=== PATIENT | female | born 1960 | race Caucasian/White ===

== ENCOUNTER → 2016-09-15 | Outpatient (CLI) | payer MEDICAID | END | disposition home or self-care (01) | LOC: LABWHC1 14:48 | PROVIDERS: ATTEND Nurse Practitioner Family | DX: E03.9 Hypothyroidism, unspecified (principal) | CPT/HCPCS: 36415; 84439; 84443 ==

== ENCOUNTER → 2016-10-12 | Outpatient (CLI) | payer MEDICAID ==
[2016-10-12 09:47] LABS: Basophils # (A) 0.1 k/uL (0-0.2); Basophils % (A) 1 %; CH 28.7; CHCM 33.2; Eosinophils # (A) 0.1 k/uL (0-0.7); Eosinophils % (A) 1 %; HCT 43.4 % (34.0-46.0); HDW 2.69; HGB 14.3 gm/dL (11.4-16.0); Luc # (Auto) 0.15; Luc % (Auto) 2; Lymphocytes # (A) 2.1 k/uL (1.0-4.8); Lymphocytes % (A) 22 %; MCH 28.6 pg (25.0-35.0); MCHC 32.9 g/dL (31.0-37.0); MCV 86.9 fL (80.0-100.0); Mean Platelet Volume 7.7; Monocytes # (A) 0.4 k/uL (0-1.0); Monocytes % (A) 4 %; Neutrophils # (A) 6.9 k/uL (1.3-7.7); Neutrophils % (A) 71 %; RBC 4.99 m/uL (3.80-5.40); RDW 13.3 % (11.5-15.5); WBC 9.7 k/uL (3.8-10.6)
[2016-10-12 11:52] LABS: ALT 29 U/L (9-52); AST 23 U/L (14-36); Alkaline Phosphatase 120 U/L (38-126); Anion Gap 13 mmol/L; Blood Urea Nitrogen 14 mg/dL (7-17); Carbon Dioxide 27 mmol/L (22-30); Chloride 104 mmol/L (98-107); Glucose 106 mg/dL (74-99); Non-African American GFR(MDRD) >60 (>60 ml/min/1.73 sqM); Potassium 4.6 mmol/L (3.5-5.1); Sodium 144 mmol/L (137-145); Total Bilirubin 0.4 mg/dL (0.2-1.3); Total Protein 7.8 g/dL (6.3-8.2)
[2016-10-12 12:17] LABS: Erythrocyte Sedimentation Rate 10 mm/hr (0-20)
--- NOTE | 2016-10-12 15:01 | US ---
EXAMINATION TYPE: US thyroid st tissue head/neck DATE OF EXAM: 10/12/2016 12:25 PM COMPARISON: NONE CLINICAL HISTORY: E07.9 Disorder of Thyroid unspecified. Abnormal labs, pt on thyroid meds x 8 years GLAND SIZE: Right Lobe: 4.2 x 1.2 x 1.5 cm Overall Parenchyma: heterogenous Left Lobe: 4.0 x 1.0 x 1.4 cm Overall Parenchyma: heterogeneous Isthmus Thickness: 0.2 cm NODULES RIGHT: # of nodules measured on right: 0 LEFT: # of nodules measured on left: 2 1. 0.7 X 0.5 x 0.6 cm isoechoic solid nodule at the upper pole with poorly defined margins; This no dule is wider than tall and shows intranodular vascularity. Prior size: No prior 2. 0.5 X 0.5 x 0.4 cm isoechoic solid nodule at the lower pole with poorly defined margins; This nod ule is wider than tall and shows intranodular vascularity. Prior size: No prior ISTHMUS: # of nodules measured in the isthmus: 0 Bilateral neck scanned, no evidence of lymphadenopathy/ Heterogeneous gland bilaterally with small, s ub-centimeter nodules left Thyroid gland is normal in size and heterogeneous in appearance with small nodules in left thyroid lo be marked by technologist. Some benign-appearing lymph nodes in the right neck are marked by technolo gist. IMPRESSION: Thyroid gland is normal in size and heterogeneous in appearance, no concerning greater than 1 cm luis d or cystic nodules are identified
== END | disposition home or self-care (01) ==
LOC: LABWHC1 09:18
PROVIDERS: ATTEND Nurse Practitioner Family
DX: E07.9 Disorder of thyroid, unspecified (principal); M79.1 Myalgia; R53.83 Other fatigue
CPT/HCPCS: 36415; 76536; 80053; 85025; 85652; 86038; 86140

== ENCOUNTER 2017-06-13 07:33 | Emergency (ER) | payer MEDICAID, OTHER ==
[2017-06-13 07:40] VITALS: TEMP 97.4
--- NOTE | 2017-06-13 08:23 | ED ---
General Adult HPI - General Chief complaint: Fall Stated complaint: Fell-[facility] Time Seen by Provider: 06/13/17 07:35 Source: patient, RN notes reviewed Mode of arrival: ambulatory Limitations: no limitations - History of Present Illness Initial comments: This is a 56-year-old female presents emergency department after she had fallen off the edge of her chair at 640 this morning. Patient states her right buttock has a little sharp pain occasionally she does not have any bony tenderness it she knows of. Patient states her hip moves fine and her lower back does not hurt. Patient denies hitting her head or neck. Patient denies any chest or abdominal pain. Patient states she fell because there was a wheel missing off of her chair. - Related Data Home Medications Medication Instructions Recorded Confirmed Losartan Potassium 100 mg PO HS 06/15/15 06/13/17 Levothyroxine Sodium [Synthroid] 75 mcg PO DAILY@0200 06/13/17 06/13/17 Allergies Allergy/AdvReac Type Severity Reaction Status Date / Time No Known Allergies Allergy Verified 06/13/17 08:37 Review of Systems ROS Statement: Those systems with pertinent positive or pertinent negative responses have been documented in the HPI. ROS Other: All systems not noted in ROS Statement are negative. Past Medical History Past Medical History: Hypertension, Thyroid Disorder History of Any Multi-Drug Resistant Organisms: None Reported Past Surgical History: Hysterectomy Past Psychological History: Depression Smoking Status: Former smoker Past Alcohol Use History: None Reported Past Drug Use History: None Reported General Exam - General Exam Comments Initial Comments: GENERAL Patient is well-developed and well-nourished. Patient is in mild distress. EYES Patient's pupils are equal and round. Extraocular motion is intact SKIN Unremarkable NEURO The patient is alert and oriented 3 PYSCH Patient has normal interpersonal interactions. MUSCULOSKELETAL Left buttocks is mildly tender to palpation Limitations: no limitations Course Vital Signs 06/13/17 06/13/17 06/13/17 07:36 07:41 09:26 Temperature 97.4 F L Pulse Rate 97 68 Respiratory 18 19 Rate Blood Pressure 171/100 160/90 146/104 O2 Sat by Pulse 99 100 Oximetry Medical Decision Making - Medical Decision Making Pelvis x-ray shows no acute abnormality. Disposition Clinical Impression: Contusion of buttock Disposition: HOME SELF-CARE Condition: Good Instructions: Contusion in Adults (ED) Referrals: Markus Joiner III, MD [Primary Care Provider] - 1-2 days Time of Disposition: 09:32
--- NOTE | 2017-06-13 09:18 | XR ---
EXAMINATION TYPE: XR pelvis AP view DATE OF EXAM: 06/13/2017 CLINICAL HISTORY: Fall off of a chair today landing on the patient's left hip with subsequent left hi p pain. TECHNIQUE: A single AP view of the pelvis is obtained. COMPARISON: None. FINDINGS: There is no acute fracture/dislocation evident in the pelvis. The hip and sacroiliac join ts appear symmetric and unremarkable. The overlying soft tissue appears unremarkable. Mild acetabula r roof sclerosis and cephalad joint space narrowing relate to mild femoral acetabular arthropathy. IMPRESSION: There is no acute fracture or dislocation in the pelvis.
[2017-06-13 09:27] VITALS: BP 146/104; PULSE 68; RESP 19
== END 2017-06-13 09:50 | disposition home or self-care (01) ==
LOC: EC 07:33
DX: S30.0XXA Contusion of lower back and pelvis, initial encounter (principal); E07.9 Disorder of thyroid, unspecified; I10 Essential (primary) hypertension; Z87.891 Personal history of nicotine dependence; Z79.899 Other long term (current) drug therapy; W05.0XXA Fall from non-moving wheelchair, initial encounter; Y92.69 Other specified industrial and construction area as the place of occurrence of the external cause; Y99.0 Civilian activity done for income or pay
CPT/HCPCS: 72170; 99283

== ENCOUNTER → 2018-02-23 | Outpatient (CLI) | payer MEDICAID ==
[2018-02-23 11:43] LABS: Basophils # (A) 0.1 k/uL (0-0.2); Basophils % (A) 1 %; Eosinophils # (A) 0.2 k/uL (0-0.7); Eosinophils % (A) 2 %; HCT 43.3 % (34.0-46.0); HGB 14.4 gm/dL (11.4-16.0); Lymphocytes # (A) 2.3 k/uL (1.0-4.8); Lymphocytes % (A) 25 %; MCH 28.6 pg (25.0-35.0); MCHC 33.3 g/dL (31.0-37.0); MCV 85.8 fL (80.0-100.0); Mean Platelet Volume 7.7; Monocytes # (A) 0.4 k/uL (0-1.0); Monocytes % (A) 4 %; Neutrophils # (A) 6.2 k/uL (1.3-7.7); Neutrophils % (A) 67 %; Platelet Count 247 k/uL (150-450); RBC 5.04 m/uL (3.80-5.40); RDW 13.4 % (11.5-15.5); WBC 9.3 k/uL (3.8-10.6)
[2018-02-23 12:02] LABS: Albumin 4.6 g/dL (3.5-5.0); Calcium 9.8 mg/dL (8.4-10.2); Potassium 4.6 mmol/L (3.5-5.1); Total Bilirubin 0.4 mg/dL (0.2-1.3); Total Protein 7.6 g/dL (6.3-8.2)
[2018-02-23 12:18] LABS: T4, Free (Free Thyroxine) 1.11 ng/dL (0.78-2.19)
== END | disposition home or self-care (01) ==
LOC: LABWHC1 10:38
PROVIDERS: ATTEND Physician Assistant Medical
DX: Z00.01 Encounter for general adult medical examination with abnormal findings (principal); I10 Essential (primary) hypertension; F41.9 Anxiety disorder, unspecified; E03.9 Hypothyroidism, unspecified
CPT/HCPCS: 36415; 80053; 80061; 84439; 84443; 85025